=== PATIENT | male | born 1995 | race Caucasian/White ===

== ENCOUNTER 2016-09-06 18:19 | Emergency (ER) | payer OTHER ==
--- NOTE | 2016-09-06 18:37 | ED Physician Chart ---
Chief Complaint/HPI - Patient Information Date Seen:: 09/06/16 Time Seen:: 18:22 Chief Complaint:: chest pain History of Present Illness:: THIS IS A 20 YR OLD MALE WITH THREE DAYS OF CHEST PAIN OVER THE CENTER, WITHOUT SOB, DIAPHORESIS, WEAKNESS. HE STATES THAT AT TIMES HE HIS HEAD SWIMS WITH PALPATIONS. HE DENIES SMOKING OR USING DRUGS. HE DENIES ANY FAMILY HISTORY OF HEART DISEASE. THE DENIES HTN, DIABETES OR ANY OTHER CHRONIC ILLNESSES. OF SIGNIFICANTS THE PATIENT WAS ILL WITH A SORE THROAT WITH FEVER ABOUT THREE WEEKS AGO. Allergies:: Allergies Allergy/AdvReac Type Severity Reaction Status Date / Time MDX Seafood [Seafood] Allergy Unknown Verified 10/23/12 12:25 Historian:: Patient Review:: Nurse's Note Reviewed Review of Systems - Review of Systems General/Constitutional: No fever, No chills, No weight loss, No weakness, No diaphoresis, No edema, No loss of appetite Skin: No skin lesions, No rash, No bruising Head: No headache, No light-headedness Eyes: No loss of vision, No pain, No diplopia ENT: No earache, No nasal drainage, No sore throat, No tinnitus Neck: No neck pain, No swelling, No thyromegaly, No stiffness, No mass noted Cardio Vascular: Chest pain, Palpitations, No PND, No orthopnea, No edema Pulmonary: No SOB, No cough, No sputum, No wheezing GI: No nausea, No vomiting, No diarrhea, No pain, No melena, No hematochezia, No constipation, No hematemesis G/U: No dysuria, No frequency, No hematuria Musculoskeletal: No bone or joint pain, No back pain, No muscle pain Endocrine: No polyuria, No polydipsia Psychiatric: No prior psych history, No depression, No anxiety, No suicidal ideation Hematopoietic: No bruising, No lymphadenopathy Allergic/Immuno: No urticaria, No angioedema Neurological: No syncope, No focal symptoms, No weakness, No paresthesia, No headache, No seizure, No dizziness, No confusion, No vertigo Past Medical History - Past Medical History Obtainable: Yes Past Medical History: No significant medical hx Family History: None Social History: Non Smoker, No Alcohol, No Drug Use Psychiatricy History: None Family Medical History - Family Member Mother History Unknown: Yes Hx Family Coronary Artery Disease: Yes Father History Unknown: Yes Physical Exam - Physical Examination General/Constitutional: Awake, Well-developed, well-nourished, Alert, No distress, GCS 15, Non-toxic appearing, Ambulatory Head: Atraumatic Eyes: Lids, conjuctiva normal, PERRL, EOMI Skin: Nl inspection, No rash, No skin lesions, No ecchymosis, Well hydrated, No lymphadenopathy ENMT: External ears, nose nl, Nasal exam nl, Lips, teeth, gums nl Neck: Nontender, Full ROM w/o pain, No JVD, No nuchal rigidity, No bruit, No mass, No stridor Respiratory: Nl effort/Exclusion, Clear to Auscultation, No Wheeze/Rhonchi/Rales Cardio Vascular: RRR, No murmur, gallop, rubs Other Cardio Vascular comments:: FIXED SPLITTING OF THE SECOND HEART SOUND (pulmonary valve closing late). GI: No tenderness/rebounding/guarding, No organomegaly, No hernia, Normal BS's, Nondistended, No mass/bruits, No McBurney tenderness : No CVA tenderness Extremities: No tenderness or effusion, Full ROM, normal strength in all extremities, No edema, Normal digits & nails Neuro/Psych: Alert/oriented, DTR's symmetric, Normal sensory exam, Normal motor strength, Judgement/insight normal, Mood normal, Normal gait, No focal deficits Misc: normal gait, Normal back, No paraspinal tenderness Labs/Radiology/EKG Results - Lab Results Results: Abnormal Lab Results 09/06/16 09/06/16 09/06/16 18:40 18:46 18:46 WBC 9.0 RBC 5.92 H Hgb 17.4 H Hct 51.0 H MCV 86.2 MCH 29.3 MCHC Differential 34.0 RDW 12.4 Plt Count 292 MPV 8.0 Neutrophils % 54.0 Lymphocytes % 36.7 Monocytes % 7.9 Eosinophils % 1.0 Basophils % 0.4 PT 11.0 INR 1.10 Sodium Potassium Chloride Carbon Dioxide Anion Gap BUN Creatinine Est GFR ( Amer) Est GFR (Non-Af Amer) BUN/Creatinine Ratio Glucose Calcium Total Bilirubin AST ALT Alkaline Phosphatase Troponin I Total Protein Albumin Globulin Albumin/Globulin Ratio TSH Urine Source CLEAN C Urine Color YELLOW Urine Clarity CLEAR Urine pH 7.0 Ur Specific [place] 1.020 Urine Protein NEGATIVE Urine Glucose (UA) NEGATIVE Urine Ketones TRACE Urine Blood TRACE Urine Nitrate NEGATIVE Urine Bilirubin NEGATIVE Urine Urobilinogen 0.2 Ur Leukocyte Esterase NEGATIVE Urine RBC 2-5 H Urine WBC NONE SEEN Ur Epithelial Cells NONE SEEN Urine Bacteria NONE SEEN 09/06/16 09/06/16 09/06/16 18:46 18:46 18:46 WBC RBC Hgb Hct MCV MCH MCHC Differential RDW Plt Count MPV Neutrophils % Lymphocytes % Monocytes % Eosinophils % Basophils % PT INR Sodium 135 L Potassium 3.5 Chloride 99 Carbon Dioxide 30.7 Anion Gap 8.8 BUN 14 Creatinine 0.9 Est GFR ( Amer) > 60.0 Est GFR (Non-Af Amer) > 60.0 BUN/Creatinine Ratio 15.6 Glucose 87 Calcium 10.5 H Total Bilirubin 0.3 AST 20 ALT 29 Alkaline Phosphatase 106 H Troponin I < 0.01 L Total Protein 8.9 H Albumin 5.2 Globulin 3.7 Albumin/Globulin Ratio 1.4 TSH 2.21 Urine Source Urine Color Urine Clarity Urine pH Ur Specific [place] Urine Protein Urine Glucose (UA) Urine Ketones Urine Blood Urine Nitrate Urine Bilirubin Urine Urobilinogen Ur Leukocyte Esterase Urine RBC Urine WBC Ur Epithelial Cells Urine Bacteria - Radiology Results Results: CHEST X-RAY = NAD - EKG Interpretations EKG Time:: 18:47 Rhythm: SINUS [place]: RIGHT Rate: 86 ED Septic Shock - . Is Septic Shock (SBP<90, OR Lactate>4 mmol\L) present?: No Reassessment (Disposition) - Diagnosis Diagnosis:: POLYCYTHEMIA VERA FITTED SPLINTING OF THE SECOND HEART SOUND. - Aftercare/Follow up Instructions Aftercare/Follow-Up Instructions:: Counseled pt regarding lab results/diagnosis & need follow up, Refer to Discharge Instructions, Counseled pt & family regarding lab results/diagnosis & need follow up Notes:: THE PATIENT WAS GIVEN AN EXPLANATION OF WHAT HIS PROBLEMS WERE AND TOLD TO FOLLOW UP WITH HIS PMD FOR CONSULTATIONS ON THE HEART AND THE BLOOD. - Patient Disposition Discharge/Transfer:: Home Condition at Disposition:: Improved ED Discharge Plan - Patient Disposition Admit/Discharge/Transfer: PT DISCHARGED HOME Condition at Disposition: Unchanged Instructions: Chest Pain Observation Additional Instructions: follow up with primary doctor within 1-2 days. return to er for worsening symptoms.
[2016-09-06 19:18] LABS: % BASOPHILS 0.4 % (0.0-2.0); % LYMPHOCYTES 36.7 % (20.0-50.0); % MONOCYTES 7.9 % (2.0-10.0); HEMOGLOBIN 17.4 gm/dL (13.2-17.3); MEAN CELL VOLUME 86.2 fl (80-99); MEAN CORPUSCULAR HEMOGLOBIN 29.3 pg (26.0-30.0); NEUTROPHILE ABSOLUTE 4.9 Th/cmm (1.8-8.0); PLATELET COUNT 292 Th/cmm (150-400); RED BLOOD COUNT 5.92 Mil/cmm (4.30-5.70); RED CELL DISTRIBUTION WIDTH 12.4 % (11.5-20.0)
[2016-09-06 19:27] LABS: ALB/GLOB RATIO 1.4 (1.0-1.8); ALKALINE PHOSPHATASE 106 U/L (34-104); ANION GAP 8.8 (7.0-16.0); BILIRUBIN,TOTAL 0.3 mg/dL (0.3-1.0); BUN - UREA NITROGEN 14 mg/dL (7-25); BUN/CREATININE RATIO 15.6; CALCIUM SERUM 10.5 mg/dL (8.6-10.3); CARBON DIOXIDE 30.7 mEq/L (21.0-31.0); CHLORIDE 99 mEq/L (98-107); CREATININE - SERUM 0.9 mg/dL (0.7-1.3); GLUCOSE 87 mg/dL (70-105); INR 1.1 (0.5-1.4); POTASSIUM SERUM 3.5 mEq/L (3.5-5.1); SGOT 20 U/L (13-39); SGPT/ALT 29 U/L (7-52); SODIUM SERUM 135 mEq/L (136-145)
[2016-09-06 21:01] LABS: URINE BILIRUBIN NEGATIVE (NEGATIVE); URINE BLOOD TRACE (NEGATIVE); URINE COLOR YELLOW; URINE GLUCOSE (UA) NEGATIVE (NEGATIVE); URINE KETONE TRACE mg/dL (NEGATIVE); URINE PROTEIN NEGATIVE (NEGATIVE); URINE UROBILINOGEN 0.2 E.U./dL (0.2 - 1.0)
[2016-09-06 21:02] LABS: URINE BACTERIA NONE SEEN /hpf (NONE SEEN); URINE EPITHELIAL CELLS NONE SEEN /lpf (FEW); URINE WBC NONE SEEN /hpf (0-5)
--- NOTE | 2016-09-07 10:35 | Diagnostic Imaging Report ---
Portable chest x-ray History: Pain Allowing for portable technique the heart size is normal. No focal pulmonary parenchymal processes. No hilar or mediastinal abnormalities. Impression: No acute abnormalities.
== END 2016-09-06 21:25 | disposition home or self-care (01) ==
LOC: ER 18:19
DX: D45 Polycythemia vera (principal); Z91.013 Allergy to seafood
CPT/HCPCS: 36415-UA; 71010-TC; 80053-TC; 81001-TC; 84443-TC; 84484-TC; 85025-TC; 85610-TC; 86592-TC; 93005

== ENCOUNTER 2017-10-17 18:16 | Emergency (ER) | payer OTHER ==
[2017-10-17] MEDS ORDERED: Amoxicillin/Clavulanat 875/125 Tab PO ONE (20:26)
--- NOTE | 2017-10-17 20:26 | ED Physician Chart ---
ED Chief Complaint/HPI - Patient Information Date Seen:: 10/17/17 Time Seen:: 20:25 Chief Complaint:: Ear pain History of Present Illness:: 22 yo male had cold symptoms for 1 week followed with right ear pain for 3 days and left ear pain for 1 day. The hearing of right side was somewhat affected. Allergies:: Allergies Allergy/AdvReac Type Severity Reaction Status Date / Time seafood Allergy Uncoded 09/06/16 19:33 Vitals:: Vital Signs - 8 hr 10/17/17 18:39 Temp 98.0 F HR 72 RR 15 BP 132/82 O2 Sat % 99 ED Review of Systems - Review of Systems General/Constitutional: Fever Skin: No skin lesions Head: No headache Eyes: No pain ENT: Earache Neck: No neck pain Cardio Vascular: No chest pain Pulmonary: No SOB GI: No nausea, No vomiting G/U: No dysuria Musculoskeletal: No bone or joint pain Psychiatric: No prior psych history ED Past Medical History - Past Medical History Past Medical History: No significant medical hx Social History: Non Smoker, No Alcohol, No Drug Use Surgical History: None Family Medical History - Family Member Mother History Unknown: Yes Hx Family Cancer: No Hx Family Coronary Artery Disease: No Hx Family Congestive Heart Failure: No Hx Family Hypertension: No Hx Family Seizures: No Hx Family Dementia: No Hx Family AIDS: No Hx Family COPD: No Hx Family Psychiatric Problems: No Father History Unknown: Yes Ethnicity: Hx Family Cancer: No Hx Family Congestive Heart Failure: No Hx Family Hypertension: No Hx Family Stroke: No Hx Family Diabetes: No Hx Family Dementia: No Hx Family HIV: No Hx Family Hepatitis: No Hx Family Tuberculosis: No ED Physical Exam - Physical Examination General/Constitutional: Awake, Alert Head: Atraumatic Eyes: PERRL Skin: No skin lesions Other ENMT comments:: Right TM erythema Neck: No nuchal rigidity Respiratory: Clear to Auscultation Cardio Vascular: RRR, No murmur, gallop, rubs, NL S1 S2 GI: No tenderness/rebounding/guarding Extremities: normal strength in all extremities Neuro/Psych: No focal deficits ED Assessment - Assessment General Assessment: Right otitis media Assessment/Comments:: Augmentin 875/125mg po x 1 D/c home Augmentin 875/125mg bid x 7 days F/u PCP or return to ER if symptoms worsen ED Septic Shock - . Is Septic Shock (SBP<90, OR Lactate>4 mmol\L) present?: No - <6hrs of presentation: Vital Signs: Vital Signs - 8 hr 10/17/17 18:39 Temp 98.0 F HR 72 RR 15 BP 132/82 O2 Sat % 99 ED Reassessment (Disposition) - Reassessment Reassessment Condition:: Improved - Patient Disposition Discharge/Transfer:: Home ED Discharge Plan - Patient Disposition Admit/Discharge/Transfer: PT DISCHARGED HOME Condition at Disposition: Stable Instructions: Otitis Media, Adult, [id number] Additional Instructions: MAKE A FOLLOW UP WITH PRIMARY MEDICAL DOCTOR GAYATRI, COMPLY WITH PRESCRIBED MEDICATION, GO BACK TO EMERGENCY ROOM IF SYMPTOMS WORSEN.
[2017-10-17] MEDS ORDERED: Amoxicillin/Clavulanat 875/125 Tab ONE (20:52)
== END 2017-10-17 21:20 | disposition home or self-care (01) ==
LOC: ER 18:16
DX: H66.91 Otitis media, unspecified, right ear (principal)
CPT/HCPCS: Z7502; Z7610

== ENCOUNTER 2017-11-25 18:01 | Emergency (ER) | payer OTHER ==
--- NOTE | 2017-11-25 19:28 | ED Physician Chart ---
ED Chief Complaint/HPI - Patient Information Date Seen:: 11/25/17 Time Seen:: 19:15 Chief Complaint:: sore throat History of Present Illness:: Patient had a sore throat, subjective fever and cough for 2 days. Sputum is clear. No vomiting or diarrhea. Patient did not receive influenza vaccination this season. Allergies:: Allergies Allergy/AdvReac Type Severity Reaction Status Date / Time seafood Allergy Uncoded 09/06/16 19:33 Vitals:: Vital Signs - 8 hr 11/25/17 18:17 Temp 100.6 F HR 101 RR 22 BP 140/77 O2 Sat % 97 Historian:: Patient Review:: Nurse's Note Reviewed ED Review of Systems - Review of Systems General/Constitutional: Fever Skin: No skin lesions Head: No headache Eyes: No loss of vision ENT: Sore throat Neck: No neck pain Cardio Vascular: No chest pain Pulmonary: No SOB, Cough, Sputum GI: No nausea, No vomiting, No diarrhea G/U: No dysuria Musculoskeletal: No bone or joint pain Endocrine: No polyuria, No polydipsia Psychiatric: No prior psych history Hematopoietic: No bruising Allergic/Immuno: No urticaria Neurological: No syncope, No focal symptoms ED Past Medical History - Past Medical History Past Medical History: No significant medical hx Family History: None Social History: Non Smoker, No Alcohol Surgical History: None Psychiatricy History: None Medication: None Family Medical History - Family Member Mother History Unknown: Yes Hx Family Cancer: No Hx Family Coronary Artery Disease: No Hx Family Congestive Heart Failure: No Hx Family Hypertension: No Hx Family Seizures: No Hx Family Dementia: No Hx Family AIDS: No Hx Family COPD: No Hx Family Psychiatric Problems: No Father History Unknown: Yes Ethnicity: Hx Family Cancer: No Hx Family Congestive Heart Failure: No Hx Family Hypertension: No Hx Family Stroke: No Hx Family Diabetes: No Hx Family Dementia: No Hx Family HIV: No Hx Family Hepatitis: No Hx Family Tuberculosis: No ED Physical Exam - Physical Examination General/Constitutional: Well-developed, well-nourished, Alert Head: Atraumatic Eyes: Lids, conjuctiva normal, PERRL Skin: Nl inspection, No rash ENMT: External ears, nose nl, TM canals nl, Nasal exam nl, Lips, teeth, gums nl Other ENMT comments:: Throat slightly swollen; mild erythema; no peritonsillar abscess Neck: No nuchal rigidity Respiratory: Nl effort/Exclusion, Clear to Auscultation Cardio Vascular: RRR, No murmur, gallop, rubs GI: Nondistended, No mass/bruits : No CVA tenderness Neuro/Psych: Alert/oriented Misc: Normal back, No paraspinal tenderness ED Labs/Radiology/EKG Results - Lab Results Results: Laboratory Results - last 24 hr 11/25/17 19:25 Influenza A (Rapid) NEG FOR INF A Influenza B (Rapid) NEG FOR INF B Comments:: Strep screen also negative ED Assessment - Assessment General Assessment: Patient tested for influenza A and B for which Tamiflu would be indicated and for group A strep for which antibiotics would be indicated. Results returned negative so patient has a viral pharyngitis for which only symptomatic treatment is indicated. I urged patient to get an influenza vaccination each year in May. ED Septic Shock - . Is Septic Shock (SBP<90, OR Lactate>4 mmol\L) present?: No - <6hrs of presentation: Vital Signs: Vital Signs - 8 hr 11/25/17 18:17 Temp 100.6 F HR 101 RR 22 BP 140/77 O2 Sat % 97 ED Reassessment (Disposition) - Reassessment Reassessment Condition:: Unchanged - Diagnosis Diagnosis:: Heart somewhat acute viral pharyngitis - Aftercare/Follow up Instructions Aftercare/Follow-Up Instructions:: Refer to Discharge Instructions - Patient Disposition Discharge/Transfer:: Home Condition at Disposition:: Stable, Unchanged
[2017-11-25 20:31] LABS: INF A SCREEN NEG FOR INF A
[2017-11-25 20:32] LABS: INF B SCREEN NEG FOR INF B
== END 2017-11-25 20:50 | disposition home or self-care (01) ==
LOC: ER 18:01
DX: J02.8 Acute pharyngitis due to other specified organisms (principal)
CPT/HCPCS: 87070-90; 87081-90; 87804-TC; Z7502